=== PATIENT | male | born 1955 | race Caucasian/White ===

== ENCOUNTER 2023-08-10 09:29 | Outpatient (AMB) | payer BC, SELFPAY ==
--- NOTE | 2023-08-10 09:36 | HO.NEPHOV_ITS ---
HPI HPI Comments History of Present Illness Details Mr. Delgado was seen office in follow-up of his hypertension, proteinuria on a backdrop of diabetes mellitus. He has had history of hyperkalemia in the past. His blood pressure is well controlled at home. He is taking SISI- inhibitor. He is not taking any nonsteroidal anti-inflammatory medications regularly. He denies nausea, vomiting, diarrhea, shortness of breath, chest pain, proximal nocturnal dyspnea, orthopnea, pedal edema or urinary symptoms. He feels well. He has not had any hospitalizations or medication changes lately. His last serum creatinine was 1.4. [facility] Medical History (Updated 08/10/23 @ 09:40 by Arvin Barney MD) Diabetes mellitus with nephropathy Hyperkalemia Renal cyst Chronic kidney disease, stage 3a Proteinuria Hypertension Surgical History (Updated 08/10/23 @ 09:56 by Sophia Funes MA) History of back surgery H/O shoulder replacement H/O wrist replacement Family History Maternal Grandmother Cancer Maternal Grandfather Diabetes Social History (Updated 08/10/23 @ 09:55 by Sophia Funes MA) Alcohol intake: never Patient Tobacco Use Status: Never used Tobacco Use of substances other than those prescribed or required for medical reasons: No Vital Signs 08/10/23 09:51 Height 5 ft 7 in Weight 174 lb 2 oz BMI 27.3 BP 128/70 Blood Pressure Location Lt brachial Position Sitting Pulse 80 Pulse Source Pulse Oximeter Pulse Oximetry (%) 96 Oxygen Delivery Method Room Air Physical Exam Vital Signs: Last Vital Signs Pulse 80 08/10/23 09:51 BP 128/70 08/10/23 09:51 Pulse Ox 96 08/10/23 09:51 Oxygen Delivery Method Room Air 08/10/23 09:51 BMI result Body Mass Index 27.3 Const General: comfortable and no acute distress Orientation/consciousness: patient oriented x3 HEENT Head: Yes normocephalic Mouth: Normal oral and palatal mucosa present Eyes EOM: EOMs intact bilaterally Neck Neck: Yes supple Resp Auscultation: clear to auscultation bilaterally Cardio Jugular venous distension: no JVD Rate: regular rate GI Palpation (GI): Soft to palpation Auscultation: normal bowel sounds General: Yes no CVA tenderness Back/Spine/Pelvis Back: no CVA tenderness Skin General skin exam: no rashes or lesions noted Neuro General: patient oriented x3 and moves all extremities Extrem General: Yes no pedal edema Assessment & Plan Assessment & Plan (1) CKD (chronic kidney disease) stage 3, GFR 30-59 ml/min: Code(s): N18.30 - Chronic kidney disease, stage 3 unspecified Qualifiers: Chronic kidney disease stage 3 subtype: stage 3a (GFR 45-59) (2) Proteinuria: Code(s): R80.9 - Proteinuria, unspecified Qualifiers: Proteinuria type: other (3) Hypertension: Code(s): I10 - Essential (primary) hypertension Qualifiers: Hypertension type: primary hypertension (4) Renal cyst: Code(s): N28.1 - Cyst of kidney, acquired (5) Diabetes mellitus with nephropathy: Code(s): E11.21 - Type 2 diabetes mellitus with diabetic nephropathy Plan 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 His blood pressure is on the well controlled. His blood sugars are better and stable. His serum creatinine is stable. He can continue lisinopril 2.5 mg at night. He is on Jardiance. His volume status is optimal. He should avoid nonsteroidal anti-inflammatory medications. He should maintain good hydration. I shall do a follow up renal USS next year for follow up of renal cyst. I did not make any medication changes today. All questions answered. Follow up blood work and urine studies ordered. Coding Level of Care Code Est Pt Level 3 (32889) Diagnoses CKD (chronic kidney disease) stage 3, GFR 30-59 ml/min N18.30 Chronic kidney disease stage 3 subtype: stage 3a (GFR 45-59) Proteinuria R80.9 Proteinuria type: other Hypertension I10 Hypertension type: primary hypertension Renal cyst N28.1 Diabetes mellitus with nephropathy E11.21 Results Reviewed Nephrology Results: No Data to Display
[2023-08-10 09:51] VITALS: BP 128/70; PULSE 80; O2SAT 96; BMI 27.3
== END 2023-08-10 10:11 | disposition home or self-care (01) ==
PROVIDERS: PCP Internal Medicine; Visit Provider Internal Medicine Nephrology
DX: N18.30 Chronic kidney disease, stage 3 unspecified (principal); R80.9 Proteinuria, unspecified; I10 Essential (primary) hypertension; N28.1 Cyst of kidney, acquired; E11.21 Type 2 diabetes mellitus with diabetic nephropathy
CPT/HCPCS: 99213

== ENCOUNTER → 2023-08-10 09:29 | Outpatient (BNVA) | payer BC, SELFPAY | PROVIDERS: PCP Internal Medicine; Visit Provider Internal Medicine Nephrology ==

== ENCOUNTER 2024-01-12 09:39 | Outpatient (AMB) | payer BC, SELFPAY ==
--- NOTE | 2024-01-12 09:42 | HO.NEPHOV ---
Vital Signs 01/12/24 09:48 Height 5 ft 7 in Weight 164 lb 8 oz BMI 25.8 BP 142/80 H Blood Pressure Location Lt brachial Position Sitting Pulse 96 Pulse Source Pulse Oximeter Pulse Oximetry (%) 97 Oxygen Delivery Method Room Air Intake Visit Reasons: 5M follow up/ Confirmed Principal Web Developer Required: No Accompanied by: Self / Same As Patient Allergies glipizide Allergy (Verified 01/12/24 09:51) Unknown HPI Comments Details: Mr. Delgado was seen office in follow-up of his hypertension, proteinuria on a backdrop of diabetes mellitus. He has had history of hyperkalemia in the past. His blood pressure is well controlled at home. He is taking SISI-inhibitor. He is not taking any nonsteroidal anti-inflammatory medications regularly. He denies nausea, vomiting, diarrhea, shortness of breath, chest pain, proximal nocturnal dyspnea, orthopnea, pedal edema or urinary symptoms. He feels well. He had epidural recently for back pain . His last serum creatinine remains stable. [facility] Medical History (Updated 08/10/23 @ 09:40 by Arvin Barney MD) Diabetes mellitus with nephropathy Hyperkalemia Renal cyst Chronic kidney disease, stage 3a Proteinuria Hypertension Surgical History History of back surgery H/O shoulder replacement H/O wrist replacement Family History Maternal Grandmother Cancer Maternal Grandfather Diabetes Social History Alcohol intake: never Patient Tobacco Use Status: Never used Tobacco Physical Exam Vital Signs: Last Vital Signs Pulse 96 01/12/24 09:48 BP 142/80 H 01/12/24 09:48 Pulse Ox 97 01/12/24 09:48 Oxygen Delivery Method Room Air 01/12/24 09:48 BMI result Body Mass Index 25.8 Const General: comfortable and no acute distress Orientation/consciousness: patient oriented x3 HEENT Head: Yes normocephalic Mouth: Normal oral and palatal mucosa present Eyes EOM: EOMs intact bilaterally Neck Neck: Yes supple Resp Auscultation: clear to auscultation bilaterally Cardio Jugular venous distension: no JVD Rate: regular rate GI Palpation (GI): Soft to palpation Auscultation: normal bowel sounds General: Yes no CVA tenderness Back/Spine/Pelvis Back: no CVA tenderness Skin General skin exam: no rashes or lesions noted Neuro General: patient oriented x3 and moves all extremities Extrem General: Yes no pedal edema Results Reviewed Nephrology Results: No Data to Display Assessment & Plan Assessment & Plan (1) Diabetes mellitus with nephropathy: Code(s): E11.21 - Type 2 diabetes mellitus with diabetic nephropathy Category: Medical (2) Renal cyst: Code(s): N28.1 - Cyst of kidney, acquired Category: Medical (3) Hypertension: Code(s): I10 - Essential (primary) hypertension Category: Medical Qualifiers: Hypertension type: primary hypertension Qualified Code(s): I10 - Essential (primary) hypertension (4) Proteinuria: Code(s): R80.9 - Proteinuria, unspecified Category: Medical Qualifiers: Proteinuria type: other Qualified Code(s): R80.8 - Other proteinuria (5) CKD (chronic kidney disease) stage 3, GFR 30-59 ml/min: Code(s): N18.30 - Chronic kidney disease, stage 3 unspecified Category: Medical Qualifiers: Chronic kidney disease stage 3 subtype: stage 3a (GFR 45-59) Qualified Code(s): N18.31 - Chronic kidney disease, stage 3a Plan 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 His blood pressure is usually well controlled. His serum creatinine is stable. He can continue lisinopril 2.5 mg at night, which I plan to increase it 5 mg at next visit. He is on Jardiance. His volume status is optimal. He should avoid nonsteroidal anti-inflammatory medications. He should maintain good hydration. I shall do a follow up renal USS after next visit for follow up of renal cyst. I did not make any medication changes today. All questions answered. Orders: Orders Protein Creatinine Ratio, Ur Today E11.21 - Type 2 diabetes mellitus with diabetic nephropathy, I10 - Essential (primary) hypertension, N18.31 - Chronic kidney disease, stage 3a, N28.1 - Cyst of kidney, acquired, R80.8 - Other proteinuria Electrolytes Today E11.21 - Type 2 diabetes mellitus with diabetic nephropathy, I10 - Essential (primary) hypertension, N18.31 - Chronic kidney disease, stage 3a, N28.1 - Cyst of kidney, acquired, R80.8 - Other proteinuria Creatinine Today E11.21 - Type 2 diabetes mellitus with diabetic nephropathy, I10 - Essential (primary) hypertension, N18.31 - Chronic kidney disease, stage 3a, N28.1 - Cyst of kidney, acquired, R80.8 - Other proteinuria Blood Urea Nitrogen Today E11.21 - Type 2 diabetes mellitus with diabetic nephropathy, I10 - Essential (primary) hypertension, N18.31 - Chronic kidney disease, stage 3a, N28.1 - Cyst of kidney, acquired, R80.8 - Other proteinuria Coding Level of Care Code Est Pt Level 4 (53022) Diagnoses Diabetes mellitus with nephropathy E11.21 Renal cyst N28.1 Primary hypertension I10 Hypertension type: primary hypertension Other proteinuria R80.8 Proteinuria type: other Stage 3a chronic kidney disease N18.31 Chronic kidney disease stage 3 subtype: stage 3a (GFR 45-59)
[2024-01-12 09:48] VITALS: BP 142/80; PULSE 96; O2SAT 97; BMI 25.8
== END 2024-01-12 10:14 | disposition home or self-care (01) ==
PROVIDERS: PCP Internal Medicine; Visit Provider Internal Medicine Nephrology
DX: E11.21 Type 2 diabetes mellitus with diabetic nephropathy (principal); N28.1 Cyst of kidney, acquired; I10 Essential (primary) hypertension; R80.8 Other proteinuria; N18.31 Chronic kidney disease, stage 3a
CPT/HCPCS: 99214

== ENCOUNTER → 2024-01-12 09:39 | Outpatient (BNVA) | payer BC, SELFPAY | PROVIDERS: PCP Internal Medicine; Visit Provider Internal Medicine Nephrology ==

== ENCOUNTER 2024-07-12 09:39 | Outpatient (AMB) | payer BC, SELFPAY ==
--- NOTE | 2024-07-12 09:51 | HO.NEPHOV_ITS ---
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 Delgado was seen office in follow-up of his hypertension, proteinuria on a backdrop of diabetes mellitus. He has had history of hyperkalemia in the past. His blood pressure is well controlled at home. He is taking SISI-inhibitor. He is not taking any nonsteroidal anti-inflammatory medications regularly. He denies nausea, vomiting, diarrhea, shortness of breath, chest pain, proximal nocturnal dyspnea, orthopnea, pedal edema or urinary symptoms. He feels well. He had epidural recently for back pain . His last serum creatinine remains stable. [facility] Medical History (Updated 08/10/23 @ 09:40 by Arvin Barney MD) Diabetes mellitus with nephropathy Hyperkalemia Renal cyst Chronic kidney disease, stage 3a Proteinuria Hypertension Surgical History History of back surgery H/O shoulder replacement H/O wrist replacement Family History Maternal Grandmother Cancer Maternal Grandfather Diabetes Social History Alcohol intake: never Patient Tobacco Use Status: Never used Tobacco Review of Systems Const All systems reviewed & are unremarkable except as noted in HPI and below Physical Exam Const General: comfortable and no acute distress Orientation/consciousness: patient oriented x3 HEENT Head: Yes normocephalic Mouth: Normal oral and palatal mucosa present Eyes EOM: EOMs intact bilaterally Neck Neck: Yes supple Resp Auscultation: clear to auscultation bilaterally Cardio Jugular venous distension: no JVD Rate: regular rate GI Palpation (GI): Soft to palpation Auscultation: normal bowel sounds General: Yes no CVA tenderness Back/Spine/Pelvis Back: no CVA tenderness Skin General skin exam: no rashes or lesions noted Neuro General: patient oriented x3 and moves all extremities Extrem General: Yes no pedal edema Results Reviewed Nephrology Results: No Data to Display Assessment & Plan Assessment & Plan (1) Diabetes mellitus with nephropathy: Code(s): E11.21 - Type 2 diabetes mellitus with diabetic nephropathy Category: Medical (2) Renal cyst: Code(s): N28.1 - Cyst of kidney, acquired Category: Medical (3) Hypertension: Code(s): I10 - Essential (primary) hypertension Category: Medical Qualifiers: Hypertension type: primary hypertension Qualified Code(s): I10 - Essential (primary) hypertension (4) CKD (chronic kidney disease) stage 3, GFR 30-59 ml/min: Code(s): N18.30 - Chronic kidney disease, stage 3 unspecified Category: Medical Qualifiers: Chronic kidney disease stage 3 subtype: stage 3a (GFR 45-59) Qualified Code(s): N18.31 - Chronic kidney disease, stage 3a Plan 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 His blood pressure is usually well controlled. His serum creatinine is stable. He can continue lisinopril 2.5 mg at night, which I plan to increase it 5 mg at next visit. He is on Jardiance. His volume status is optimal. He should avoid nonsteroidal anti-inflammatory medications. He should maintain good hydration. I shall do a follow up renal USS after next visit for follow up of renal cyst. I did not make any medication changes today. All questions answered Orders: Orders Blood Urea Nitrogen 8 Months E11.21 - Type 2 diabetes mellitus with diabetic nephropathy, I10 - Essential (primary) hypertension, N18.31 - Chronic kidney disease, stage 3a, N28.1 - Cyst of kidney, acquired Protein Creatinine Ratio, Ur 8 Months E11.21 - Type 2 diabetes mellitus with diabetic nephropathy, I10 - Essential (primary) hypertension, N18.31 - Chronic kidney disease, stage 3a, N28.1 - Cyst of kidney, acquired Creatinine 8 Months E11.21 - Type 2 diabetes mellitus with diabetic nephropathy, I10 - Essential (primary) hypertension, N18.31 - Chronic kidney disease, stage 3a, N28.1 - Cyst of kidney, acquired Electrolytes 8 Months E11.21 - Type 2 diabetes mellitus with diabetic nephropathy, I10 - Essential (primary) hypertension, N18.31 - Chronic kidney disease, stage 3a, N28.1 - Cyst of kidney, acquired Coding Level of Care Code Est Pt Level 4 (57926) Diagnoses Diabetes mellitus with nephropathy E11.21 Renal cyst N28.1 Primary hypertension I10 Hypertension type: primary hypertension Stage 3a chronic kidney disease N18.31 Chronic kidney disease stage 3 subtype: stage 3a (GFR 45-59)
[2024-07-12 09:58] VITALS: BP 124/64; PULSE 84; O2SAT 97; BMI 25.1
== END 2024-07-12 10:16 | disposition home or self-care (01) ==
PROVIDERS: PCP Internal Medicine; Visit Provider Internal Medicine Nephrology
DX: E11.21 Type 2 diabetes mellitus with diabetic nephropathy (principal); N28.1 Cyst of kidney, acquired; I10 Essential (primary) hypertension; N18.31 Chronic kidney disease, stage 3a
CPT/HCPCS: 99214

== ENCOUNTER 2025-03-14 09:38 | Outpatient (AMB) | payer BC, SELFPAY ==
--- NOTE | 2025-03-14 09:50 | HO.NEPHOV_ITS ---
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 Delgado was seen office in follow-up of his hypertension, proteinuria on a backdrop of diabetes mellitus. He has had history of hyperkalemia in the past. His blood pressure is well controlled at home. He is taking SISI-inhibitor as well as Mounjaro . He is not taking any nonsteroidal anti-inflammatory medications regularly. He denies nausea, vomiting, diarrhea, shortness of breath, chest pain, proximal nocturnal dyspnea, orthopnea, pedal edema or uri nary symptoms. His last serum creatinine remains stable. [facility] Medical History (Updated 08/10/23 @ 09:40 by Arvin Barney MD) Diabetes mellitus with nephropathy Hyperkalemia Renal cyst Chronic kidney disease, stage 3a Proteinuria Hypertension Surgical History History of back surgery H/O shoulder replacement H/O wrist replacement Family History Maternal Grandmother Cancer Maternal Grandfather Diabetes Social History Alcohol intake: never Patient Tobacco Use Status: Never used Tobacco Review of Systems Const All systems reviewed & are unremarkable except as noted in HPI and below Physical Exam Vital Signs: Last Vital Signs Pulse 87 03/14/25 09:54 BP 122/60 03/14/25 09:54 Pulse Ox 97 03/14/25 09:54 Oxygen Delivery Method Room Air 03/14/25 09:54 BMI result Body Mass Index 22.7 Const General: comfortable and no acute distress Orientation/consciousness: patient oriented x3 HEENT Head: Yes normocephalic Mouth: Normal oral and palatal mucosa present Eyes EOM: EOMs intact bilaterally Neck Neck: Yes supple Resp Auscultation: clear to auscultation bilaterally Cardio Jugular venous distension: no JVD Rate: regular rate GI Palpation (GI): Soft to palpation Auscultation: normal bowel sounds General: Yes no CVA tenderness Back/Spine/Pelvis Back: no CVA tenderness Skin General skin exam: no rashes or lesions noted Neuro General: patient oriented x3 and moves all extremities Extrem General: Yes no pedal edema Assessment & Plan Assessment & Plan (1) Diabetes mellitus with nephropathy: Code(s): E11.21 - Type 2 diabetes mellitus with diabetic nephropathy Category: Medical (2) Hypertension: Code(s): I10 - Essential (primary) hypertension Category: Medical Qualifiers: Hypertension type: primary hypertension Qualified Code(s): I10 - Essential (primary) hypertension (3) CKD (chronic kidney disease) stage 3, GFR 30-59 ml/min: Code(s): N18.30 - Chronic kidney disease, stage 3 unspecified Category: Medical Qualifiers: Chronic kidney disease stage 3 subtype: stage 3a (GFR 45-59) Qualified Code(s): N18.31 - Chronic kidney disease, stage 3a (4) Renal cyst: Code(s): N28.1 - Cyst of kidney, acquired Category: Medical (5) Proteinuria: Code(s): R80.9 - Proteinuria, unspecified Category: Medical Qualifiers: Proteinuria type: other Qualified Code(s): R80.8 - Other proteinuria Plan 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 His blood pressure is usually well controlled. His serum creatinine is stable. He can continue lisinopril . He is on Jardiance and Mounjaro. His volume status is optimal. He should avoid nonsteroidal anti-inflammatory medications. He should maintain good hydration. I shall do a follow up renal USS after next visit for follow up of renal cyst. I did not make any medication changes today. All questions answered Orders: Orders Blood Urea Nitrogen 6 Months E11.21 - Type 2 diabetes mellitus with diabetic nephropathy, I10 - Essential (primary) hypertension, N18.31 - Chronic kidney disease, stage 3a, N28.1 - Cyst of kidney, acquired, R80.8 - Other proteinuria Creatinine 6 Months E11.21 - Type 2 diabetes mellitus with diabetic nephropathy, I10 - Essential (primary) hypertension, N18.31 - Chronic kidney disease, stage 3a, N28.1 - Cyst of kidney, acquired, R80.8 - Other proteinuria Protein Creatinine Ratio, Ur 6 Months E11.21 - Type 2 diabetes mellitus with diabetic nephropathy, I10 - Essential (primary) hypertension, N18.31 - Chronic kidney disease, stage 3a, N28.1 - Cyst of kidney, acquired, R80.8 - Other proteinuria Electrolytes 6 Months E11.21 - Type 2 diabetes mellitus with diabetic nephropathy, I10 - Essential (primary) hypertension, N18.31 - Chronic kidney disease, stage 3a, N28.1 - Cyst of kidney, acquired, R80.8 - Other proteinuria Coding Level of Care Code Est Pt Level 4 (54335) Diagnoses Diabetes mellitus with nephropathy E11. Primary hypertension I10 Hypertension type: primary hypertension Stage 3a chronic kidney disease N18.31 Chronic kidney disease stage 3 subtype: stage 3a (GFR 45-59) Renal cyst N28.1 Other proteinuria R80.8 Proteinuria type: other
[2025-03-14 09:54] VITALS: BP 122/60; PULSE 87; O2SAT 97; BMI 22.7
--- OUTSIDE RECORDS SUMMARY | 2025-03-14 10:20 | XMS_ITS | Clinical Summary ---
Author Organization [facility] Address [address] [place] [address] Care Team Providers Care Cream Tester Name Role Phone Aylin Branch MD Primary Care Provider Surgical History Surgery Date Site/Laterality Comments FOOT SURGERY PROCEDURE: HISTORICAL FOOT SURGERY; COMMENT: right metatarsal repair ROTATOR CUFF REPAIR PROCEDURE: HISTORICAL ROTATOR CUFF REPAIR; COMMENT: left shoulder x 2 BACK SURGERY PROCEDURE: HISTORICAL BACK SURGERY; COMMENT: fusion L5-S1 COLONOSCOPY 09/01/05 PROCEDURE: OUTSIDE COLONOSCOPY Medical History Medical History Date Comments DM (diabetes mellitus), type 2 with peripheral vascular complications (CMS/HCC V24, CMS/HCC V28) 06/29/2014 DX:DM (diabetes mellitus), type 2 with peripheral vascular complications (HCC) Erectile dysfunction 06/29/2014 DX:Erectile dysfunction Spinal stenosis 06/29/2014 DX:Spinal stenos is; COMMENT: Decompression L2-S1/ Fusion L5-S1 bone graft/ 09/19/13 Dr Barbosa Chronic back pain 06/29/2014 DX:Chronic misbah k pain; COMMENT: Decompression L2-S1/ Fusion L5-S1 bone graft/ 09/19/13 Dr Barbosa Sondylolisthesis Carpal tunnel syndrome 06/29/2014 DX:Carpal tunnel syndrome; COMMENT: Left Diabetes mellitus with neuro logical manifestation (CMS/HCC V24, CMS/HCC V28) 06/29/2014 DX:Diabetes mellitus with neurological manifestation (HCC) Hyperlipidemia 06/29/2014 DX:Hyperlipidemi a HTN (hypertension) 06/29/2014 DX:HTN (hyper tension) Chronic neck pain 06/29/2014 DX:Chronic nec k pain; COMMENT: Cervical spondylosis MRI 03/06/14 Vitamin D deficiency 07/03/2014 DX:Vitamin D deficiency Microalbuminuria 09/05/2014 DX:Microalbumin uria DM (diabetes mellitus), type 2, uncontrolled, with renal complications 09/05/2014 DX:DM (diabetes mellitus), t ype 2, uncontrolled, with renal complications Family History Medical History Relation Name Comments Diabetes Maternal Grandfather Relation Name Status Comments Maternal Grandfather Social History Tobacco Use Types Packs/Day Years Used Date Smoking Tobacco: Former Alcohol Use Standard Drinks/Week Comments Not Asked 0 (1 standard drink = 0.6 oz pur e alcohol) Sex and Gender Information Value Date Recorded Sex Assigned at Not on file Legal Sex Male 5:02 AM EST Gender Identity Not on file Sexual Orientation Not on file Obstetrics History Last Filed Vital Signs Vital Sign Reading Time Taken Comments Blood Pressure 114/66 12/12/2021 1:23 PM EDT Pulse - - Temperature - - Respiratory Rate - - Oxygen Saturation - - Inhaled Oxygen Concentration - - Weight 77.1 kg (170 lb) 12/12/2021 1:23 PM EDT Height 172.7 cm (5' 8 ) 12/12/2021 1:23 PM EDT Body Mass Index 25.85 12/12/2021 1:23 PM EDT Plan of Treatment Health Maintenance Due Date Last Done Comments Diabetes: Annual GFR (Glomer ular Filtration Rate) 1953 Diabetes: Annual Foot Exam 1963 Diabetes: Annual Retina Eye Exam 1963 Pneumococcal Vaccine: 50+ Ye ars (1 of 1 - PCV) 2003 Zoster Vaccines (2 of 3) 09/05/2014 07/11/2014 DTaP,Tdap,and Td Vaccines (2 - Td or Tdap) 06/05/2021 06/05/2011 Abdominal Aortic Aneurysm (A AA) Screen 07/27/2022 Cholesterol Screening (Lipid Panel) 07/27/2022 Colorectal Cancer Screening: Colonoscopy 07/27/2022 Falls Risk Assessment 07/27/2022 Hepatitis C Screening 07/27/2022 Social Influencers of Health Screening 07/27/2022 Diabetes: Annual Urine Albumin-Creatinine Ratio (uACR) 08/05/2022 Diabetes: Blood Sugar Contro l Test (HGBA1C) 08/05/2022 Hypertension/CHF/CAD Annual BMP Blood Test 08/05/2022 COVID-19 Vaccine ( - 2023-2 5 season) 2024 Depression Screening 08/24/2024 Influenza Vaccine (#1) 2025 RSV Immunization Adult Patie nts (1 - 1-dose 75+ series) 2028 HIB Vaccines Aged Out No longer eligi ble based on patient's age to complete this topic HPV Vaccines Aged Out No longer eligi ble based on patient's age to complete this topic Hepatitis A Vaccines Aged Out No long er eligible based on patient's age to complete this topic Hepatitis B Vaccines Aged Out No long er eligible based on patient's age to complete this topic IPV Vaccines Aged Out No longer eligi ble based on patient's age to complete this topic MMR Vaccines Aged Out No longer eligi ble based on patient's age to complete this topic Meningococcal ACWY Vaccine Aged Out N o longer eligible based on patient's age to complete this topic Meningococcal B Vaccine Aged Out No l onger eligible based on patient's age to complete this topic RSV Immunization Patients Un mary jane 20 months Aged Out No longer eligible b ased on patient's age to complete this topic Varicella Vaccines Aged Out No longer eligible based on patient's age to complete this topic Care Teams Cream Tester Relationship Specialty Start Date End Date Aylin Branch MD [address] [place] [address] PCP - General Internal Medicine 12/22/14
--- OUTSIDE RECORDS SUMMARY | 2025-03-14 10:20 | XMS_ITS | Clinical Summary ---
Author Organization [facility] Address [address] [place] [address] Care Team Providers Care Business Systems Architect Name Role Phone Aylin Branch MD Primary Care Provider Allergies No known active allergies Medications Medication Sig Dispensed Refills Start Date End Date Status JANUVIA 100 MG tablet 100 tablets. 0 09/25/2019 Active simvastatin (ZOCOR) tablet 40 mg 40 mg. 0 09/09/2019 Active meloxicam (MOBIC) 15 MG tablet Take 15 mg by mouth daily. 0 Active Empagliflozin (JARDIANCE) 25 MG TABS Take by mouth. 0 Active NIFEdipine (PROCARDIA XL) 60 MG 24 hr tablet Take 60 mg by mouth daily. 0 Active lisinopril (PRINIVIL,ZESTRIL ) tablet 2.5 mg Take 2.5 mg by mouth daily. 0 Active bisacodyl (DULCOLAX) [address] 1 suppository (10 mg total) rectally daily. 12 suppository 0 04/02/2020 Active HYDROmorphone (DILAUDID) 2 MG tablet Take 1 tablet (2 mg total) by mouth every 6 (six) hours as needed for pain. 30 tablet 0 05/02/2020 Active Additional Information Patient not taking.Reason: Other, Reported on 07/06/2020 polyethylene glycol (MIRALAX) 17 g packet Take 17 g by mouth daily. 14 each 0 05/10/2020 Active HYDROcodone-aceta minophen (NORCO) 7.5-325 MG per tablet Take 1 tablet by mouth every 6 (six) hours as needed for pain. 0 Active Active Problems Problem Noted Date Diagnosed Date Right-sided low back pain with right-sided sciat ica 12/12/2021 Tendinopathy of right rotator cuff 03/13/2020 Impingement syndrome of right shoulder 0 Social History Tobacco Use Types Packs/Day Years Used Date Smoking Tobacco: Former Smokeless Tobacco: Former Sex and Gender Information Value Date Recorded Sex Assigned at Male 09/27/2019 3:40 PM EST Gender Identity Not on file Sexual Orientation Not on file Job Start Date Occupation Industry Not on file Not on file Not on file Last Filed Vital Signs Vital Sign Reading Time Taken Comments Blood Pressure 114/66 12/12/2021 1:23 PM EDT Pulse 101 05/08/2020 3:00 PM EDT Temperature 36.6 C (97.8 F) 07/06/2020 2:41 PM EST Respiratory Rate - - Oxygen Saturation 97% 05/08/2020 3:00 PM EDT Inhaled Oxygen Concentration - - Weight 77.1 kg (170 lb) 12/12/2021 1:23 PM EDT Height 172.7 cm (5' 8 ) 12/12/2021 1:23 PM EDT Body Mass Index 25.85 12/12/2021 1:23 PM EDT Plan of Treatment Health Maintenance Due Date Last Done Comments Hepatitis C Screening 1955 Depression Screening 1965 Preventative Health Evaluation 1971 DTap / Tdap / Td (1 - Tdap) 1972 Colon Cancer Screening (Colonoscopy) 1998 Fall Risk Assessment 2018 Pneumococcal Vaccine (3 of 3 - PPSV23 or PCV20) 08/06/2023 08/06/2018, 03/25/2015, 12/06/2014 COVID-19 Vaccine ( season) 2024 05/29/2021, 11/20/2020, 10/31/2020 Influenza Vaccine (#1) 2025 , 05/15/2018, 05/16/2017, Additional history exists RSV Adult > 60+ Yrs or (1 - 1-dose 75+ series) 2028 Shingrix-Zoster Vaccine Completed 12/11/2018, 04/21 Hepatitis B Vaccines Aged Out No long er eligible based on patient's age to complete this topic RSV Ped < 20 months Aged Out No longe r eligible based on patient's age to complete this topic Care Teams Business Systems Architect Relationship Specialty Start Date End Date Aylin Branch MD [address] [facility] [id number] PCP - General Internal Medicine 10/07/19
--- OUTSIDE RECORDS SUMMARY | 2025-03-14 10:20 | XMS_ITS | Data Portability ---
Author Organization [facility], [email or web address], [facility] Main Office Address [address] [place] [id number] Care Team Providers Care Repairer Finished Metal Name Role Phone MAREN ANDRÉS Excellence Manager Assessment Encounter Date Assessment Date Assessment LastModified by Organization Details LastModified Time 06/25/2021 06/25/2021 Overall this patient is doing quite well approximately 4 months out from a wrist implant replacement arthroplasty in [place] procedure. We discussed the current level of symptoms and clinical findings. I have recommended continued range of motion and strengthening. I recommended expectant management for these ulnar wrist symptoms as I think these will improve with time and strength. We will see him back in another 3 months for another clinical evaluation. Further therapy was ordered. Not available 06/25/2021 14:00:52 09/11/2021 09/11/2021 this patient is generally doing very well after total wrist replacement arthroplasty he is still having some issues with pain and weakness with weightbearing and lifting and this is quite common at this point. We had a lengthy question and answer session I reccommended continued strengthening activities follow-up in 6 months. Not available 09/13/2021 12:17:27 10/17/2021 10/17/2021 overall I think this patient is doing well in the postoperative period after a total wrist arthroplasty in [place] procedure. I did remind the patient that there is quite a bit of structural difference in this wrist and that it was never mentioned to support a full weight load and that he should be using the wrist for day to day activities more fine motor type activities and using the opposite wrist for more of the heavier loading type activities. That being said I still think that there will be some improvements in his strength but it will take some time we have agreed to get him involved with more occupational therapy so that he can focus on his strengthening activities and we will see him back in several months. 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 We have agreed we will see him back in 6 months for another evaluation with x-rays he will contact me sooner if there is any further complaints or concerns. Not available 03/20/2022 12:51:12 08/27/2022 08/27/2022 This gentleman i s doing well now almost 18 months out from a total wrist arthroplasty of the left nondominant wrist. The patient has some low-level discomfort but I think that generally speaking he is doing quite well from this procedure and I have encouraged him to continue with strengthening use of a supportive brace as needed. As before I think the patient has a significant disability related to the left wrist he cannot do any lifting or weightbearing or other aggressive repetitive activities but it is still my feeling that he is not totally disabled related to this specific clinical concern. Since it is nondominant hand there should be the ability to use his dominant hand for clerical activities only. His wrist is somewhat weak and sore which will be a permanent issue the patient does drive but there are times when the wrist may flare to the point where it will make it difficult for him to continue to independently commute and be reliable as an employee because of this ongoing clinical issue. We will see him back in 1 year for repeat x-rays to confirm stability of the implant. Not available 08/28/2022 09:25:23 Plan of Treatment Reminders Order Date Submit Date Provider Last Modified By Organization Details Last Modified Time Details Appointments None record ed. Lab None record ed. Referral None record ed. Procedures None record ed. Surgeries None record ed. Imaging None record ed. Medication Orders None record ed. Patient TargetsNo targets recorded. Patient InstructionsNo instructions recorded. Reason for Referral None Reported. Results Created Date Observation Date Name Description Value Unit Range Abnormal Flag Note LastModifiedBy Organization Detail LastModifiedTime 06/25/20 21 06/25/2021 XR, wrist , 3 or more view [facility] [address] [place] [address], [address] Name: YVETTE DELGADO : [id number] Date of Servic e: [birth year] Acct Number : [id number] Order Number : [id number] Locati on: WORD Report Number : [id number] Servic e: REG REF/ Reques ting Physic kirsten: Taryn lopez,Kamilah Clark MD Catego ry: ORTHOP EDIC RADIOL Y [facility] Exam: WRIST 3 VIEW MINIMI M Left Access ion #: [id number] 1.001S VH Signs/ Sympto ms: PAIN Report Status : Sig carlos Study: 3 views of the left wrist. Indica tion: Pain. Compar jamaica: Left wrist radiog raphs dated 021. Findin gs: Redemo nstrat ion of extens kenia postsu rgical change s about the left breast . Arthro plasty change s are seen about the wrist withou t eviden ce of hardwa re fractu re or loosen ing. Alignm ent is near-a natomi c. Resect ion of the distal ulna again noted. No acute osseou s abnorm ality. There are mild degene rative change s about the base of the first metaca rpal. Mild diffus e soft tissue swelli ng about the wrist. Extens kenia vascul ar calcif icatio ns are noted. IMPRES JENNY: Stable postsu rgical and degene rative change s about the left wrist. No eviden ce of hardwa re compli cation or acute osseou s abnorm ality. Date/T lucia of Dictat ion: 1117 Radiol ogy [facility] nt (if applic able): Approv ed By [employer]end [employer] Radiol ogist: Laura Arboleda MD 1117 Orderi ng physic kirsten: Romero lopez Other provid ers: Juliann Centeno er, Juliann Centeno er, , No Physic kirsten, , , INTERFACE [facility] (Radiology) [address] [place] [address], [id number], 06/25/2021 11:19:12 09/11/19 22 09/11/2021 XR, wrist , 3 or more view [facility] [address] [place] [address], [address] Name: YVETTE DELGADO : [id number] Date of Servic e: 1440 Acct Number : [id number] Order Number : [id number] Locati on: WORD Report Number : [id number] Servic e: REG REF/ Reques ting Physic kirsten: Kamilah Larkin MD Catego ry: ORTHOP EDIC RADIOL [facility] Exam: WRIST 3 VIEW MINIMI M Left Access ion #: [id number] 2.001S VH Signs/ Sympto ms: PAIN LEFT WRIST Report Status : Sig carlos LEFT WRIST, 3 VIEWS REASON FOR EXAM: PAIN LEFT WRIST TECHNI QUE: PA obliqu e and latera l COMPAR JAMAICA: Novemb er 2020 FINDIN GS: Proxim al carpal row resect ion with distal carpal fusion and wrist arthro plasty withou t eviden ce of loosen ing. Distal ulnar resect ion with surgic al anchor screw remain s in good positi on. IMPRES JENNY: Wrist arthro plasty in stable positi on withou t eviden ce of hardwa re malfun ction. Date/T lucia of Dictat ion: 1517 Radiol ogy [facility] nt (if applic able): Approv ed By Attend [employer] Radiol ogist: Omar Phelan MD 1517 Orderi ng physic kirsten: Bradle y Taryn er Other provid ers: Juliann Centeno er, Juliann Centeno er, , No Physic kirsten, , , INTERFACE [facility] (Radiology) [address] [place] [address], [id number], 09/11/2021 15:19:04 10/17/19 22 10/17/2021 [facility] [address] [place] [address], [phone] Name: YVETTE DELGADO : [id number] Date of Servic e: 1323 Acct Number : [id number] Order Number : [id number] Locati on: WORD Report Number : [id number] Servic e: REG REF/ Reques ting Physic kirsten: Taryn lopez,Kamilah Clark MD Catego ry: ORTHOP EDIC RADIOL OGY [facility] Exam: WRIST 3 VIEW MINIMI M Left Access ion #: [id number] 1.001S VH Signs/ Sympto ms: LT WRIST PAIN Report Status : Sig carlos STUDY: Left wrist radiog raph, 3 views INDICA TION:P ain COMPAR JAMAICA: 022 FINDIN GS: Left proxim al carpec juanito and wrist arthro plasty with radial and carpal compon ents in unchan ged alignm ent. No hardwa re compli cation . Distal ulnar osteot kiet with anchor screw in distal ulnar diaphy sis stump. Degene rative change s at first carpom etacar pal joint. No acute fractu re. Soft tissue swelli ng about the wrist joint. Vascul ar calcif icatio ns. IMPRES JENNY: Postsu rgical change s of wrist arthro plasty in unchan ged alignm ent and withou t hardwa re compli cation . Date/T lucia of Dictat ion: 1349 Radiol ogy Reside nt (if applic able): Approv ed By Attend ing Radiol ogist: Leticia Nelson MD 1349 Orderi ng physic kirsten: Romero lopez Other provid ers: Juliann Centeno er, Juliann Centeno er, , No Physic kirsten, , , INTERFACE [facility] (Radiology) [address] [place] [address], [address], 10/17/2021 13:52:06 08/27/19 23 08/27/2022 XR, wrist , 3 or more view [facility] Radiol ogy [address] [place] [address], [address] Name: YVETTE DELGADO : [id number] Date of Servic e: 1237 Acct Number : [id number] Order Number : [id number] Locati on: WORD Report Number : [id number] Servic e: REG REF/ Reques ting Physic kirsten: Taryn lopez,Kamilah Clark MD Catego ry: ORTHOP EDIC RADIOL OGY [facility] Exam: WRIST 3 VIEW MINIMI M Left Access ion #: [id number] 3.001S VH Signs/ Sympto ms: PAIN Report Status : Sig carlos Left wrist radiog raphs, 3 views. INDICA TION: Pain. COMPAR JAMAICA: Left wrist radiog raphs, 022. FINDIN GS: Stable postsu rgical change s with left proxim al carpec juanito and wrist arthro plasty with radial and carpal compon ents. There is mild radial tilt of the carpal compon ent which may be physio logic. Stable appear ance of distal ulnar osteot kiet with anchor screw in distal ulnar diaphy seal stump. Stable degene rative change s. No acute fractu re or eviden ce of peripr osthet ic loosen ing. Vascul ar calcif icatio n noted. IMPRES JENNY: 1. Left wrist postsu rgical change s as descri bed above with mild radial tilt of the carpal side of the arthro plasty . This may be physio logic. 2. No eviden ce of fractu re or peripr osthet ic compli cation . Date/T lucia of Dictat ion: 1249 Radiol ogy Reside nt (if applic able): Approv ed By Attend ing Radiol ogist: Jeferson Babin DO 1249 Orderi ng physic kirsten: Juliann Centeno er Other provid ers: Juliann Centeno er, Juliann Centeno er, , Non Physic kirsten, , , INTERFACE [facility] (Radiology) [address] [place] [address], [address], 08/27/2022 12:53:40 Result Notes Documentation Provider Name and Address Organization Details Recorded Time Xr, Wrist, 3 Or More View : [facility] Department of Radiology [address] [place] [address], [address] Name: SUZY DELGADO : 51 Date of Service: 06/25/21 1022 Acct Number: [id number] Order Number: [id number] Location: WORD Report Number: [id number] Service: REG REF/ Requesting Physician: Alexis Roberts MD Category: ORTHOPEDIC RADIOLOGY [facility] Exam: WRIST 3 VIEW MINIMIM Left Signs/Symptoms: PAIN Report Status: Signed Study:3 views of the left wrist. Indication: Pain. Comparison: Left wrist radiographs dated 03/12/2021. Findings: Redemonstration of extensive postsurgical changes about the left breast. Arthroplasty changes are seen about the wrist without evidence of hardware fracture or loosening. Alignment is near-anatomic. Resection of the distal ulna again noted. No acute osseous abnormality. There are mild degenerative changes about the base of the first metacarpal. Mild diffuse soft tissue swelling about the wrist. Extensive vascular calcifications are noted. IMPRESSION: Stable postsurgical and degenerative changes about the left wrist. No evidence of hardware complication or acute osseous abnormality. Date/Time of Dictation: 06/25/21 1117 Associate Professor Of Archaeology (if applicable): Approved By Attending Radiologist: Laura Arboleda MD 06/25/21 1117 Ordering physician: Alexis Roberts Other providers: Alexis Dougherty, , No Physician, , , Not Available [facility] 06/25/2021 11:19:12 Xr, Wrist, 3 Or More View : [facility] Department of Radiology [address] [place] [address], [address] Name: SUZY DELGADO : 51 Date of Service: 09/11/21 1440 Acct Number: [id number] Order Number: [id number] Location: [facility] Report Number: [id number] Service: REG REF/ Requesting Physician: Alexis Roberts MD Category: ORTHOPEDIC RADIOLOGY [facility] Exam: WRIST 3 VIEW MINIMIM Left Signs/Symptoms: PAIN LEFT WRIST Report Status: Signed LEFT WRIST, 3 VIEWS REASON FOR EXAM: PAIN LEFT WRIST TECHNIQUE: PA oblique and lateral COMPARISON: June 25, 2021 FINDINGS: Proximal carpal row resection with distal carpal fusion and wrist arthroplasty without evidence of loosening. Distal ulnar resection with surgical anchor screw remains in good position. IMPRESSION: Wrist arthroplasty in stable position without evidence of hardware malfunction. Date/Time of Dictation: 09/11/21 151 Associate Professor Of Archaeology (if applicable): Approved By Attending Radiologist: Zay Haddad MD 09/11/21 1517 Ordering physician: Alexis Roberts Other providers: Alexis Dougherty, , No Physician, , , Not Available [facility] 09/11/2021 15:19:04 Xr, Wrist, 3 Or More View : [facility] Department of Radiology [address] [place] [address], [address] Name: SUZY DELGADO : 51 Date of Service: 10/17/21 1323 Acct Number: [id number] Order Number: [id number] Location: [facility] Report Number: [id number] Service: REG REF/ Requesting Physician: Alexis Roberts MD Category: ORTHOPEDIC RADIOLOGY [facility] Exam: WRIST 3 VIEW MINIMIM Left Signs/Symptoms: LT WRIST PAIN Report Status: Signed STUDY: Left wrist radiograph, 3 views INDICATION:Pain COMPARISON: 09/11/2021 FINDINGS: Left proximal carpectomy and wrist arthroplasty with radial and carpal components in unchanged alignment. No hardware complication. Distal ulnar osteotomy with anchor screw in distal ulnar diaphysis stump. Degenerative changes at first carpometacarpal joint. No acute fracture. Soft tissue swelling about the wrist joint. Vascular calcifications. IMPRESSION: Postsurgical changes of wrist arthroplasty in unchanged alignment and without hardware complication. Date/Time of Dictation: 10/17/211348 Associate Professor Of Archaeology (if applicable): Approved By Attending Radiologist: Bre Nelson MD 10/17/211348 Ordering physician: Alexis Roberts Other providers: Alexis Dougherty, , No Physician, , , Not Available [facility] 10/17/2021 13:52:06 Xr, Wrist, 3 Or More View : [facility] Department of Radiology [address] [place] [address], [address] Name: SUZY DELGADO : 51 Date of Service: 08/27/221236 Acct Number: [id number] Order Number: [id number] Location: WORD Report Number: [id number] Service: REG REF/ Requesting Physician: Alexis Roberts MD Category: ORTHOPEDIC RADIOLOGY [facility] Exam: WRIST 3 VIEW MINIMIM Left Signs/Symptoms: PAIN Report Status: Signed Left wrist radiographs, 3 views. INDICATION: Pain. COMPARISON: Left wrist radiographs, 10/17/2021. FINDINGS: Stable postsurgical changes with left proximal carpectomy and wrist arthroplasty with radial and carpal components. There is mild radial tilt of the carpal component which may be physiologic. Stable appearance of distal ulnar osteotomy with anchor screw in distal ulnar diaphyseal stump. Stable degenerative changes. No acute fracture or evidence of periprosthetic loosening. Vascular calcification noted. IMPRESSION: 1. Left wrist postsurgical changes as described above with mild radial tilt of the carpal side of the arthroplasty. This may be physiologic. 2. No evidence of fracture or periprosthetic complication. Date/Time of Dictation: 08/27/221248 Associate Professor Of Archaeology (if applicable): Approved By Attending Radiologist: Richard Baron DO 08/27/221248 Ordering physician: Alexis Roberts Other providers: Alexis Dougherty, , Non Physician, , , Not Available [facility] 08/27/2022 12:53:40 Medical Equipment None Reported. Allergies No known drug allergies Medications Name Sig Start Date Stop Date Status Note LastModified by Organization Details LastModified Time Prescripti on - New active Rehab RX Not Available Not Available Not Available Exos wrist brace with boa active Not Available Not Available Not Available pioglitazo ne 15 mg tablet TK 1 T PO D active Not Available Not Available No t Available polyethyle ne glycol 3350 17 gram oral powder packet MIX 1 PACKET INTO 8 OUNCES OF WATER OR JUICE AND DRINK QD active Not Available Not Available No t Available sildenafil 50 mg tablet TAKE 1 TABLET BY MOUTH DAILY NEEDED FOR ERECTILE DYSFUNCTI ON active Not Available Not Available No t Available triamcinol one acetonide 0.5 % topical cream active Not Available Not Available Not Available tizanidine 4 mg tablet 01/01 completed Not Available Not Available Not Available meloxicam 15 mg tablet TAKE 1 TABLET BY MOUTH DAILY NEEDED FOR SEVERE PAIN active Not Available Not Available No t Available peg-electr olyte solution 420 gram oral solution MIX AND DRINK 240 ML PO Q 10 MINUTES UNTIL GONE active Not Available Not Available No t Available simvastati n 40 mg tablet TAKE 1 TABLET BY MOUTH DAILY AT BEDTIME active Not Available Not Available No t Available hydromorph one 2 mg tablet TAKE 1 TABLET BY MOUTH EVERY 4 TO 6 HOURS NEEDED FOR PAIN active Not Available Not Available No t Available nifedipine ER 60 mg tablet,ext ended release 24 hr TAKE 1 TABLET BY MOUTH EVERY DAY active Not Available Not Available No t Available dexamethas one 2 mg tablet 01/01 completed Not Available Not Available Not Available hydrocodon e 7.5 mg-acetami nophen 325 mg tablet TAKE 1 TO 2 TABLETS BY MOUTH EVERY 6 HOURS DX MONTH 54.2 MONTH 48.061 active Not Available Not Available No t Available bisacodyl 10 mg rectal suppositor y 01/01 completed Not Available Not Available Not Available cephalexin 500 mg capsule TAKE 1 CAPSULE BY MOUTH TWICE DAILY FOR 7 DAYS active Not Available Not Available No t Available gabapentin 300 mg capsule 01/01 completed Not Available Not Available Not Available polyethyle ne glycol 3350 17 gram/dose oral powder MIX 17 GRAMS IN 8 OUNCES OF WATER AND DRINK BY MOUTH DAILY. active Not Available Not Available No t Available hydromorph one 4 mg tablet TK 1 T PO Q 6 H PRN FOR PAIN.. 01/01 completed Not Available Not Available Not Available nifedipine ER 60 mg tablet,ext ended release active Not Available Not Available Not Available lisinopril 2.5 mg tablet TAKE 1 TABLET BY MOUTH EVERY DAY active Not Available Not Available No t Available diazepam 5 mg tablet TK 1 T PO HS THE NIGHT BEFORE YOUR PROCEDURE ON 01/22 AND 1 HOUR PRIOR TO PROCEDURE 01/01 completed Not Available Not Available Not Available amoxicilli n 875 mg-potassi um clavulanat e 125 mg tablet TAKE 1 TABLET BY MOUTH TWICE DAILY WITH FOOD FOR 10 DAYS FOR INFECTION active Not Available Not Available No t Available lactulose 10 gram/15 mL oral solution TAKE 15 ML BY MOUTH DAILY NEEDED FOR CONSTIPAT ION active Not Available Not Available No t Available fentanyl 12 mcg/hr transderma l patch APPLY 1 PATCH TOPICALLY EVERY 72 HOURS 01/01 completed Not Available Not Available Not Available Januvia 100 mg tablet TK 1 T PO D active Not Available Not Available No t Available OneTouch Verio test strips USE TO CHECK GLUCOSE ONCE DAILY active Not Available Not Available No t Available Stimulant Laxative Plus 8.6 mg-50 mg tablet TAKE 2 TABLETS BY MOUTH EVERY EVENING NEEDED FOR CONSTIPAT ION active Not Available Not Available No t Available Jardiance 10 mg tablet TK 1 TS PO ONCE DAILY IN MORNING FOR 30 DAYS 01/01 completed Not Available Not Available Not Available Jardiance 25 mg tablet TAKE 1 TABLET BY MOUTH DAILY IN THE MORNING active Not Available Not Available No t Available Trulicity 1.5 mg/0.5 mL subcutaneo us pen injector ADMINISTE R 1.5 MG UNDER THE SKIN EVERY WEEK. ROTATE INJECTION SITES active Not Available Not Available No t Available OneTouch Verio Meter USE TO CHECK GLUCOSE ONCE DAILY active Not Available Not Available No t Available Dexcom G6 Sensor device USE DIRECTED active Not Available Not Available No t Available Dexcom G6 Transmitte r device USE DIRECTED active Not Available Not Available No t Available OneTouch Delica Plus Lancet 30 gauge USE TO CHECK GLUCOSE EVERY DAY active Not Available Not Available No t Available Fluzone High-Dose Quad 2020 (PF) 240 mcg/0.7 mL IM syringe ADM 0.7ML IM UTD active Not Available Not Available No t Available BinaxNOW COVID-19 Ag Self Test kit TEST DIRECTED TODAY active Not Available Not Available No t Available Vitals Date Recorded Body height Provider Name an d Address Organization Details Last Updated DateTime 08/27/2022 172.72 cm Maren Jonas MA - [facility] 08/27/2022 13:21:11 Date Recorded Body height Provider Name an d Address Organization Details Last Updated DateTime 09/11/2021 172.72 cm Tracy [facility] 09/11/2021 13:16:15 Date Recorded Body height Provider Name an d Address Organization Details Last Updated DateTime 10/17/2021 172.72 cm Tracy [facility], [facility] 10/17/2021 13:34:30 Date Recorded Body height Provider Name an d Address Organization Details Last Updated DateTime 03/20/2022 172.72 cm Maren Jonas MA - [facility], [facility] 03/20/2022 10:42:12 Date Recorded Body height Provider Name an d Address Organization Details Last Updated DateTime 06/25/2021 172.72 cm Tracy [facility], [facility] 06/25/2021 10:35:07 Social History None recorded. Functional Status None recorded. Mental Status None recorded. Family History Nothing Reported. Medical History Condition Response Diabetes Y Hypertension Y Past Encounters Encounter ID Performer Location Encounter Start Date Encounter Closed Date Diagnosis/Indication Diagnosis SNOMED-CT Code Diagnosis ICD10 Code Diagnosis Note [id number] Alexis Roberts MD [facility] Main Office [address] [place] [phone] 01/01/2021 10:43:26 01/04/2021 13:46:31 Sprain of left wrist [id number] S63.502D Osteoarthr itis of wrist 853236590 M19.032 [id number] Alexis Roberts MD [facility] Main Office [address] [place] [phone] 03/12/2021 08:24:00 03/12/2021 11:00:39 Localized, primary osteoarthritis of the wrist 501456398 M19.032 [id number] Alexis Roberts MD [facility] Main Office [address] [place] [phone] 04/24/2021 15:13:39 04/24/2021 16:43:36 Osteoarthritis of wrist 565233391 M19.032 [id number] Alexis Roberts MD [facility] Main Office [address] [place] [phone] 06/25/2021 10:22:55 06/25/2021 12:55:51 Osteoarthritis of wrist 184012795 M19.032 [id number] Alexis Roberts MD [facility] Main Office [address] [place] [phone] 09/11/2021 13:12:20 09/11/2021 15:27:20 Localized, primary osteoarthritis of the wrist 769943892 M19.032 [id number] Alexis Roberts MD [facility] Main [address] [phone] 10/17/2021 13:31:59 10/17/2021 15:08:42 Osteoarthritis of wrist 040358096 M19.032 [id number] Alexis Roberts MD [facility] Main [address] [phone] 03/20/2022 10:31:33 03/20/2022 13:43:28 Arthritis of first carpometacarpal joint of left hand [id number] M13.842 Arthritis of left wrist [id number] M13.832 [id number] Alexis Roberts MD [facility] Main Office [address] [place] [phone] 08/27/2022 12:48:27 08/28/2022 12:50:23 Osteoarthritis of wrist [id number] M19.032 Health Concerns Section Related Observation LastModified by Organization Detai ls LastModified Time None Recorded Concern Status LastModified by Organization Details LastModified Time None Recorded Advance Directives Directive None Recorded Payers Insurance Date Sequence Insurance Name Policy Number Policy Khan Covered Member ID Khan Member ID Guarantor Name 06/20/2021 [employer] Suzy Delgado Notes Date Note Type Note Provider Name and Address Organization Details Recorded Time 06/25/2021 text/html This gentleman i s here in the postoperative period after a wrist replacement arthroplasty and Alice procedure he is now approximately 4 months out from surgery he is having some issues with weightbearing and some clicking on the ulnar aspect of the wrist he otherwise has very good pain relief and range of motion. 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 He has pain with weightbearing of the wrists. 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 His major complaint is ongoing weakness particularly with weightbearing and lifting type activities. The pain appears to be mainly in the ulnar aspect of the wrist in the area of the ulnar resection. Alexis Roberts MD [address], [phone], [facility], [facility] 12/03/2021 09:35:54 03/20/2022 text/html this gentleman i s here for a 1 year evaluation after a total wrist replacement and Darrach procedure for work-related degenerative arthritic changes in his wrist. Overall the patient is doing reasonably well he does have pain in the base of the thumb due to some arthritis in this area. He is also complaining of a tight band feeling that occurs occasionally around the wrist with some tightness when he tries to make a full fist on occasion. Otherwise he is doing well has pretty good pain relief overall he is dealing with other musculoskeletal issues. Alexis Roberts MD [address] [facility],[place] [address], [place], [phone], [facility], [facility] 03/20/2022 12:51:40 08/27/2022 text/html This gentleman i s here for another clinical evaluation of his left wrist. He underwent a total wrist replacement arthroplasty in February 2021 and generally has had a good result. He has had some low-level cramping in the forearm with some occasional wrist discomfort but generally he has been able to use the wrist for most daily activities. The patient has a multitude of other musculoskeletal issues including his lower back and bilateral shoulders. Since her last visit he has described a slightly increased amount of discomfort in the wrist but no new traumas injuries or other concerning clinical events. Alexis Roberts MD [address] [place] [address],[address], [place], [phone], [facility], [facility] 08/28/2022 09:25:49
--- OUTSIDE RECORDS SUMMARY | 2025-03-14 10:20 | XMS_ITS | Clinical Summary ---
Author Organization [facility] Address [address] [place] [address] Phone Care Team Providers Care Loss Prevention Operations Manager Name Role Phone Aylin Branch MD Primary Care Provider Allergies Active Allergy Reactions Criticality Noted Date Comments Glipizide Other (see comments) 12/04/2020 Medications Misc Natural Products (Green Tea) tablet Take 1 capsule by mouth every other day Active Multiple Vitamin (MULTIVITAMIN ADULT PO) Take 1 tablet by mouth 1 (one) time each day Active Cyanocobalamin 1000 MCG capsule Take 1 capsule by mouth 1 (one) time each day Active Jardiance 25 MG tablet Take 1 tablet by mouth 1 (one) time each day 11/30/2020 Active HYDROcodone-yoli taminophen (NORCO) 7.5-325 MG per tablet Take 1-2 tablets by mouth 4 (four) times a day As needed for pain Active meloxicam (MOBIC) 15 MG tablet Take 1 tablet by mouth 1 (one) time each day As needed Active simvastatin (ZOCOR) 40 MG tablet Take 1 tablet by mouth 1 (one) time each day Active SITagliptin (JANUVIA) 100 MG tablet Take 1 tablet by mouth 1 (one) time each day Active lisinopril 2.5 MG tablet Take 1 tablet (2.5 mg total) by mouth 1 (one) time each day 90 tablet 3 08/06/2021 Active NIFEdipine XL (PROCARDIA XL) 60 MG 24 hr tablet Take 1 tablet (60 mg total) by mouth 1 (one) time each day 90 tablet 3 07/24/2022 Active Mounjaro 2.5 MG/0.5ML solution pen-injector per week 02/02/2023 Active Active Problems Problem Noted Date Diagnosed Date Rotator cuff arthropathy of right shoulder 02/19 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 Lumbago with sciatica 12/12/2021 Hypertension 08/06/2021 Stage 3a chronic kidney disease 12/04/2020 Hyperkalemia 12/04/2020 Hypertensive disorder 12/04/2020 Hypertensive heart disease without congestive he art failure 12/04/2020 Proteinuria 11/07/2012 Resolved Problems Problem Noted Date Diagnosed Date Resolved Date Diverticular disease 02/06/2022 022 Dyslipidemia 02/06/2022 02/06/2022 Medial epicondylitis 02/06/2022 022 Psychalgia 02/06/2022 02/06/2022 Right inguinal pain 02/06/2022 02/07/20 22 Sebaceous cyst of skin of breast 02/06/2022 02/06/2022 Spinal stenosis of lumbar region 02/06/2022 02/06/2022 Stenosis of intervertebral foramina 02/06/2022 02/06/2022 Constipation 11/22/2021 02/06/2022 Degeneration of lumbar intervertebral disc 11/22/2021 02/06/2022 Diabetes mellitus 12/04/2020 06/19/2021 Disorder of rotator cuff 03/13/2020 Impingement syndrome of right shoulder 03/13/2020 06/19/2021 Polyp of colon 06/03/2016 02/06/2022 Overview (02/06/2022): repeat screening colonoscopy in 2019 Type 2 diabetes mellitus without complication 08/04/20 13 06/19/2021 Backache 10/12/2012 06/19/2021 Immunizations Immunization Administration Dates Next Due Influenza Whole 05/05/2020,06/15/2015 Pfizer SARS-COV-2 05/29/2021,11/20/2020,11/01/19 21 Pneumococcal Conjugate 13-Valent 08/06/2018,08/09/2014 Pneumococcal Polysaccharide 12/06/2014 Shingrix 12/11/2018,04/21/2018 Tdap 12/06/2014,06/05/2011 Zoster 12/11/2017,07/11/2014 Family History Medical History Relation Comments Diabetes Father Relation Status Comments Father Social History Tobacco Use Types Packs/Day Years Used Date Smoking Tobacco: Former Cigarettes 2 40 Smokeless Tobacco: Never Tobacco Cessation:Counseling Given: Not Answered Alcohol Use Standard Drinks/Week Comments Yes 1 (1 standard drink = 0.6 oz pure alcohol) Alcoholic Drinks/day: Occasional social drink Sex and Gender Information Value Date Recorded Sex Assigned at Not on file Legal Sex Male 4:54 PM EST Gender Identity Not on file Sexual Orientation Not on file Last Filed Vital Signs Vital Sign Reading Time Taken Comments Blood Pressure 124/70 02/19/2023 4:24 PM EDT Pulse 94 08/19/2022 1:55 PM EST Temperature - - Respiratory Rate - - Oxygen Saturation 98% 08/19/2022 1:55 PM EST Inhaled Oxygen Concentration - - Weight 79 kg (174 lb 3.2 oz) 02/19/2023 4:24 PM EDT Height 172.7 cm (5' 8 ) 01/02/2020 12:00 PM EDT Body Mass Index 26.49 01/02/2020 12:00 PM EDT Plan of Treatment Health Maintenance Due Date Last Done Comments Colorectal Cancer Screening: Annual FOBT 2002 Colorectal Cancer Screening: Colonoscopy 2002 Colorectal Cancer Screening: Sigmoidoscopy 2002 Pneumococcal Vaccine: 50+ Years (3 of 3 - PCV20 or PCV21) 12/07/2019 08/06/2018, 03/25/2015, 12/06/2014 Influenza Vaccine (#1) 2025 0, 06/15/2015 Pneumococcal Vaccine: Peds ( 0 to 5 Years) and At-Risk Patients (6 to 49 Years) Discontinued 08/06/2018, 03/25/2015, 12/06/2014 Hepatitis B Vaccine Aged Out No longe r eligible based on patient's age to complete this topic Insurance [facility] Care Teams Loss Prevention Operations Manager Relationship Specialty Start Date End Date Aylin Branch MD [address] PCP - General 09/03/20
== END 2025-03-14 10:20 | disposition home or self-care (01) ==
LOC: HO.HKAS 09:38
PROVIDERS: PCP Internal Medicine; Visit Provider Internal Medicine Nephrology
DX: E11.21 Type 2 diabetes mellitus with diabetic nephropathy (principal); I10 Essential (primary) hypertension; N18.31 Chronic kidney disease, stage 3a; N28.1 Cyst of kidney, acquired; R80.8 Other proteinuria
CPT/HCPCS: 99214